=== PATIENT | male | born 1940 | race Caucasian/White ===

== ENCOUNTER 2016-12-20 19:19 | Emergency (ER) | payer MEDICARE, BC ==
[2016-12-20 19:31] VITALS: BP 172/73
[2016-12-20] MEDS ORDERED: Ondansetron 4 MG/2 ML SDV IVPUSH ONE (19:35)
[2016-12-20] MEDS ORDERED: Sodium Chloride 0.9% 10 ML Syringe FLUSH PRN (19:35)
[2016-12-20] MEDS ORDERED: HYDROmorphone 1 MG/ML Syringe IVPUSH ONE (19:36)
[2016-12-20] MEDS ORDERED: Ketorolac 30 MG/ML SDV IVPUSH ONE (19:36)
[2016-12-20] MEDS ORDERED: Sodium Chloride 0.9% 1,000 ML IV SCH (19:45)
--- NOTE | 2016-12-20 19:59 | EDM.PDOC ---
ED HPI GENERAL MEDICAL PROBLEM - General Chief Complaint: Flank Pain Stated Complaint: LEFT FLANK PAIN Time Seen by Provider: 12/20/16 19:32 Source of Information: Reports: Patient History Limitations: Reports: No Limitations - History of Present Illness INITIAL COMMENTS - FREE TEXT/NARRATIVE: The patient presents with left flank pain that started about 3 to 4 hours ago. He also has some hematuria. He has a history of a kidney stone about 20 years ago. He said he has similar flank pain last week but it did not last long. He has some nausea with it but no vomiting. He has no dysuria. He has no diarrhea. He has no abdominal pain with it yet. He denies fever, chills, chest pain or abdominal pain. Onset: Sudden Duration: Hour(s): (4) Location: Reports: Other (Left flank) Quality: Reports: Sharp Severity: Severe Improves with: Reports: None Worsens with: Reports: None Associated Symptoms: Reports: Nausea/Vomiting. Denies: Chest Pain, Cough, Fever /Chills, Shortness of Breath Left Flank Pain Score (Numeric/FACES): 5 - Related Data Allergies Allergy/AdvReac Type Severity Reaction Status Date / Time No Known Allergies Allergy Verified 12/20/16 19:27 Home Meds: Home Meds Cholesterol. 12/20/16 [History] Hydrochlorothiazide 12/20/16 [History] Losartan [Cozaar] 12/20/16 [History] Past Medical History HEENT History: Reports: Hard of Hearing Cardiovascular History: Reports: High Cholesterol, Hypertension Genitourinary History: Reports: Renal Calculus - Past Surgical History Other Male Surgeries/Procedures: renal cyst removed Social & Family History - Tobacco Use Smoking Status *Q: Unknown Ever Smoked ED ROS GENERAL - Review of Systems Review Of Systems: See Below Constitutional: Reports: No Symptoms HEENT: Reports: No Symptoms Respiratory: Reports: No Symptoms Cardiovascular: Reports: No Symptoms Endocrine: Reports: No Symptoms GI/Abdominal: Reports: Nausea. Denies: Abdominal Pain, Vomiting : Reports: Flank Pain (Left) Musculoskeletal: Reports: No Symptoms Skin: Reports: No Symptoms ED EXAM, RENAL/ - Physical Exam Exam: See Below Exam Limited By: No Limitations General Appearance: Alert, No Apparent Distress Ears: Normal External Exam Nose: Normal Inspection Head: Atraumatic, Normocephalic Neck: Normal Inspection Respiratory/Chest: No Respiratory Distress, Lungs Clear, Normal Breath Sounds Cardiovascular: Regular Rate, Rhythm, No Edema, No Murmur GI/Abdominal: Soft, Non-Tender, No Organomegaly, No Mass Back Exam: Normal Inspection Extremities: Normal Inspection Course - Vital Signs Last Recorded V/S: Last Vital Signs Temp 98.5 F 12/20/16 19:29 Pulse 86 12/20/16 19:29 Resp 18 12/20/16 19:29 BP 172/73 H 12/20/16 19:29 Pulse Ox 95 12/20/16 19:29 - Orders/Labs/Meds Orders: Active Orders 24 hr Category Date Time Status Peripheral IV Care [RC] . DIRECTED Care 12/20/16 19:36 Active Abdomen Pelvis wo Cont [CT] Stat Exams 12/20/16 19:35 Taken UA W/MICROSCOPIC [URIN] Stat Lab 12/20/16 22:42 Results Sodium Chloride 0.9% [Normal Saline] 1,000 ml Med 12/20/16 19:45 Active IV ASDIRECTED Sodium Chloride 0.9% [Saline Flush] Med 12/20/16 19:35 Active 10 ml FLUSH ASDIRECTED PRN ED Antiemetic Medication Reflex [OM.PC] Stat Oth 12/20/16 19:35 Ordered Peripheral IV Insertion Adult [OM.PC] Stat Oth 12/20/16 19:35 Ordered Medication Orders Sodium Chloride (Normal Saline) 1,000 mls @ 125 mls/hr IV ASDIRECTED ROEL Last Admin: 12/20/16 19:46 Dose: 125 mls/hr Sodium Chloride (Saline Flush) 10 ml FLUSH ASDIRECTED PRN PRN Reason: Keep Vein Open Last Admin: 12/20/16 19:57 Dose: 10 ml Labs: Laboratory Tests 12/20/16 12/20/16 12/20/16 Range/Units 19:44 19:44 22:42 WBC 13.27 H (4.23-9.07) K/mm3 RBC 5.16 (4.63-6.08) M/mm3 Hgb 14.9 (13.7-17.5) gm/L Hct 44.9 (40.1-51.0) % MCV 87.0 (79.0-92.2) fl MCH 28.9 (25.7-32.2) pg MCHC 33.2 (32.2-35.5) g/dl RDW Std Deviation 45.3 H (35.1-43.9) fL Plt Count 262 (163-337) K/mm3 MPV 9.4 (9.4-12.3) fl Neut % (Auto) 80.6 H (34.0-67.9) % Lymph % (Auto) 10.8 L (21.8-53.1) % [place] % (Auto) 7.7 (5.3-12.2) % Eos % (Auto) 0.5 L (0.8-7.0) Baso % (Auto) 0.2 (0.1-1.2) % Neut # (Auto) 10.70 H (1.78-5.38) K/mm3 Lymph # (Auto) 1.43 (1.32-3.57) K/mm3 [place] # (Auto) 1.02 H (0.30-0.82) K/mm3 Eos # (Auto) 0.07 (0.04-0.54) K/mm3 Baso # (Auto) 0.02 (0.01-0.08) K/mm3 Sodium 140 (136-145) mEq/L Potassium 3.9 (3.5-5.1) mEq/L Chloride 104 (98-107) mEq/L Carbon Dioxide 28 (21-32) mEq/L Anion Gap 11.9 (5-15) BUN 33 H (7-18) mg/dL Creatinine 1.9 H (0.7-1.3) mg/dL Est Cr Clr Drug Dosing 39.06 mL/min Estimated GFR (MDRD) 35 (>60) mL/min BUN/Creatinine Ratio 17.4 (14-18) Glucose 155 H (83-115) mg/dL Calcium 9.6 (8.5-10.1) mg/dL Total Bilirubin 0.6 (0.2-1.0) mg/dL AST 21 (15-37) U/L ALT 28 (16-63) U/L Alkaline Phosphatase 81 (46-116) U/L Total Protein 6.9 (6.4-8.2) g/dl Albumin 3.6 (3.4-5.0) g/dl Globulin 3.3 gm/dL Albumin/Globulin Ratio 1.1 (1-2) Lipase 69 L (73-393) U/L Urine Color (Yellow) Urine Appearance (Clear) Urine pH (5.0-8.0) Ur Specific [place] (1.005-1.030) Urine Protein (Negative) Urine Glucose (UA) (Negative) Urine Ketones (Negative) Urine Occult Blood (Negative) Urine Nitrite (Negative) Urine Bilirubin (Negative) Urine Urobilinogen (0.2-1.0) Ur Leukocyte Esterase (Negative) Meds: Medications Generic Name Dose Route Start Last Admin Trade Name Freq PRN Reason Stop Dose Admin Sodium Chloride 1,000 mls @ 125 mls/hr 12/20/16 19:45 12/20/16 19:46 Normal Saline IV 125 mls/hr ASDIRECTED ROEL Administration Sodium Chloride 10 ml 12/20/16 19:35 12/20/16 19:57 Saline Flush FLUSH 10 ml ASDIRECTED PRN Administration Keep Vein Open Discontinued Medications Generic Name Dose Route Start Last Admin Trade Name Freq PRN Reason Stop Dose Admin Hydromorphone HCl 1 mg 12/20/16 19:36 12/20/16 19:47 Dilaudid IVPUSH 12/20/16 19:37 1 mg ONETIME ONE Administration Sodium Chloride 1,000 mls @ 1,000 mls/hr 12/20/16 22:03 Normal Saline IV 12/20/16 23:02 ONETIME ONE Ketorolac Tromethamine 30 mg 12/20/16 19:36 12/20/16 19:47 Toradol IVPUSH 12/20/16 19:37 30 mg ONETIME ONE Administration Metoclopramide HCl 10 mg 12/20/16 21:56 12/20/16 22:00 Reglan IVPUSH 12/20/16 21:57 10 mg ONETIME ONE Administration Ondansetron HCl 4 mg 12/20/16 19:35 12/20/16 19:47 Zofran IVPUSH 12/20/16 19:36 4 mg ONETIME ONE Administration Tamsulosin HCl 0.4 mg 12/20/16 20:51 12/20/16 20:57 Flomax PO 12/20/16 20:52 0.4 mg ONETIME ONE Administration - Re-Assessments/Exams Free Text/Narrative Re-Assessment/Exam: 12/20/16 19:58 I ordered an IV NS at 125mL/hr, zofran 4mg IV, dilaudid 1mg IV, toradol 30mg IV , labs, UA and CT of his abdomen and pelvis without contrast to look for a stone. 12/20/16 21:41 His WBC was elevated 13.27. His creatinine was elevated at 1.9. [place] from [place] of town so I do not have a baseline. He has never heard that his creatinine was elevated before. His glucose was 155. His CT shows he has 5.5 mm stone at the left ureterovesicular junction with mild left hydroureteronephrosis and mild left perinephric/periureteral inflammation. Exophytic mass of the lower pole of the right kidney. There is amorphus calcification at the superior margin, soft tissue density in the superior half and infiltrated fat at the inferior margin. Etiology is uncertain, this could represent previous ablation and a renal cell carcinoma however, angiomyolipoma or liposarcoma is also a possibility. Recommend clinical correlation. The patient did have a cyst removed about 20 years ago from the right kidney. I will give him a copy of his scan to take home to show his doctor. I gave him a dose of flomax here. He still has not urinated for us. He will try again. 12/20/16 23:08 His UA shows no UTI. He drank some water fast and he vomited. I gave him some reglan 10mg IV and he feels better. I will discharge him home. Departure - Departure Time of Disposition: 23:10 Disposition: Home, Self-Care 01 Condition: Good Clinical Impression: Ureteric colic, Kidney stone on left side, Ureteric calculus, Renal insufficiency - Discharge Information Forms: ED Department Discharge Additional Instructions: Drink plenty of fluids. Take the percocet for pain. Take the flomax daily. Your creatinine was elevated at 1.9. Have that rechecked after you pass the stone. I have given you a copy of your CT. Have your doctor take a look at the lesion on the right kidney. Please return if you are worse. - My Orders Last 24 Hours: My Active Orders 12/20/16 19:35 Abdomen Pelvis wo Cont [CT] Stat Sodium Chloride 0.9% [Saline Flush] 10 ml FLUSH ASDIRECTED PRN ED Antiemetic Medication Reflex [OM.PC] Stat Peripheral IV Insertion Adult [OM.PC] Stat 12/20/16 19:36 Peripheral IV Care [RC] . DIRECTED 12/20/16 19:45 Sodium Chloride 0.9% [Normal Saline] 1,000 ml IV ASDIRECTED 12/20/16 22:42 UA W/MICROSCOPIC [URIN] Stat - Assessment/Plan Last 24 Hours: My Active Orders 12/20/16 19:35 Abdomen Pelvis wo Cont [CT] Stat Sodium Chloride 0.9% [Saline Flush] 10 ml FLUSH ASDIRECTED PRN ED Antiemetic Medication Reflex [OM.PC] Stat Peripheral IV Insertion Adult [OM.PC] Stat 12/20/16 19:36 Peripheral IV Care [RC] . DIRECTED 12/20/16 19:45 Sodium Chloride 0.9% [Normal Saline] 1,000 ml IV ASDIRECTED 12/20/16 22:42 UA W/MICROSCOPIC [URIN] Stat
[2016-12-20] MEDS ORDERED: Tamsulosin 0.4 MG Cap.ER PO ONE (20:51)
[2016-12-20] MEDS ORDERED: Metoclopramide 10 MG/2 ML SDV IVPUSH ONE (21:56)
[2016-12-20] MEDS ORDERED: Sodium Chloride 0.9% 1,000 ML IV ONE (22:03)
--- NOTE | 2016-12-21 08:31 | CT ---
CT abdomen and pelvis Technique: Multiple axial sections were obtained from above the dome of the diaphragm inferiorly through the pubic symphysis. Intravenous and oral contrast was not utilized. Comparison: No previous exam. Findings: Visualized lung bases show nothing acute. Liver shows a small low-density abnormality within the left lobe measuring 8 mm. No additional abnormality is identified within the liver. Spleen appears within normal limits. Adrenal glands show no nodule. Pancreas is within normal limits. Aorta shows atherosclerotic change which continues into the iliac vessels. Abdominal aorta is ectatic with AP dimension of 2.5 cm. Mass is identified off the inferior right kidney measuring approximately 5.8 cm. This contains a soft tissue component as well as fat and calcifications. No additional abnormality is seen within the kidneys. There is a calcification being seen within the distal left ureter measuring about 6.7 mm. This causes dilatation of the left ureter. No right-sided ureteral calculi are seen. No mesenteric abnormalities are seen. No pelvic mass or adenopathy is seen. Prostate gland is mildly enlarged. Bone window settings were reviewed which show scattered degenerative change within the spine. Impression: 1. 5.8 cm mass off the inferior right kidney as described above. This is most likely due to renal cell carcinoma. Unusual angiomyolipoma is also possible but this benign etiology usually does not contain as much soft tissue as current finding. 2. Dilated left ureter caused by a distal left ureteral stone at the UVJ. This ureteral stone measures about 6.7 mm. 3. Small low-density lesion within the left lobe of the liver most likely incidental as no additional liver findings are seen. 4. Other incidental findings as noted above. Diagnostic code #9 I agree with preliminary report issued by [facility] ([facility] preliminary report dictated on 12/20/16, 9:28 PM Central Time)
== END 2016-12-20 23:21 | disposition home or self-care (01) ==
LOC: JD.ED 19:19
DX: N20.2 Calculus of kidney with calculus of ureter (principal); N28.9 Disorder of kidney and ureter, unspecified; E78.00 Pure hypercholesterolemia, unspecified; I10 Essential (primary) hypertension
CPT/HCPCS: 36415; 74176; 80053; 81001; 83690; 85025; 96361; 96374; 96375; 99284; A9270; J1170; J1885; J2405; J2765; J7040; J7050